=== PATIENT | female | born 1985 | race American Indian/Alaskan Native ===

== ENCOUNTER 2017-12-26 15:11 | Emergency (ER) | payer SELFPAY ==
[2017-12-26 16:22] LABS: Mean Corpuscular HGB Conc 27 % (30-34); Platelet Count 438 K/mm3 (140-440)
--- NOTE | 2017-12-26 16:23 | Emergency Department Report ---
ED General Adult HPI - General Chief complaint: Altered Mental Status Stated complaint: SYNCOPAL EPISODE Time Seen by Provider: 12/26/17 16:13 Source: patient, EMS (ems notes not available at time of chart dictation), RN notes reviewed Mode of arrival: Stretcher Limitations: No Limitations - History of Present Illness Initial comments: This is a 32-year-old female. The patient is previously unknown to this provider. She does not have a local primary care doctor. The patient has a past medical history of anemia. She is not . Patient reports she has not delivered her given within the past 2 months. The patient is brought to the hospital by EMS for resolved altered mental status. Patient was donating blood. Possibly was donating blood as per her environmental engineering aide/family member she became unresponsive, lifted up both of her arms, and was sweating and diaphoretic. This was painless, and is now resolved. The patient denies headache, neck pain, chest pain, abdominal pain, shortness of breath and urinary symptoms. She also denies toxic drug consumption. She further reports that last week while donating plasma she had another episode of convulsions. This was painless and nontraumatic. She has no symptoms at this time. All of her symptoms have resolved. Her convulsions/altered mental status did not have exacerbating or relieving factors. -: Sudden Severity scale (0 -10): 0 Consistency: now resolved Improves with: none Worsens with: none Associated Symptoms: confusion (as per family), seizure, syncope (as per family) . denies: chest pain, cough, diaphoresis, fever/chills, headaches, loss of appetite, malaise, nausea/vomiting, rash, shortness of breath, weakness, other - Related Data Allergies Allergy/AdvReac Type Severity Reaction Status Date / Time No Known Allergies Allergy Unverified 12/26/17 15:55 ED Review of Systems ROS: Stated complaint: SYNCOPAL EPISODE Other details as noted in HPI Comment: All other systems reviewed and negative ED Past Medical Hx - Past Medical History Previous Medical History?: No - Social History Smoking Status: Current Every Day Smoker ED Physical Exam - General Limitations: No Limitations General appearance: alert, in no apparent distress - Head Head exam: Present: atraumatic, normocephalic - Eye Eye exam: Present: normal appearance, PERRL, EOMI, other (visual acuity intact to finger counting, color perception, reading at a close distance). Absent: nystagmus - ENT ENT exam: Present: normal exam, normal orophraynx, mucous membranes moist, normal external ear exam - Neck Neck exam: Present: normal inspection, full ROM - Respiratory Respiratory exam: Present: normal lung sounds bilaterally. Absent: respiratory distress - Cardiovascular Cardiovascular Exam: Present: regular rate, normal rhythm, normal heart sounds. Absent: bradycardia, tachycardia, irregular rhythm, systolic murmur, diastolic murmur, rubs, gallop - GI/Abdominal GI/Abdominal exam: Present: soft, normal bowel sounds. Absent: distended, tenderness, guarding, rebound, rigid, pulsatile mass - Extremities Exam Extremities exam: Present: normal inspection, full ROM, normal capillary refill. Absent: tenderness, pedal edema, joint swelling, calf tenderness - Back Exam Back exam: Present: normal inspection, full ROM. Absent: tenderness, CVA tenderness (R), paraspinal tenderness, vertebral tenderness - Neurological Exam Neurological exam: Present: alert, oriented X3, CN II-XII intact, normal gait, other (Extraocular movements intact. Tongue midline. No facial droop. Facial sensation intact to light touch in the V1, V2, V3 distribution bilaterally. 5 and 5 strength in 4 extremities.. Sensation is intact to light touch in 4 extremities.). Absent: motor sensory deficit - Psychiatric Psychiatric exam: Present: normal affect, normal mood - Skin Skin exam: Present: warm, dry, intact, normal color. Absent: rash ED Course Vital Signs 12/26/17 15:56 Temperature 98 F Pulse Rate 82 Respiratory 16 Rate Blood Pressure 107/68 [Left] O2 Sat by Pulse 96 Oximetry - Reevaluation(s) Reevaluation #1: 12/26/17 17:55 Differential diagnosis, including not limited to: Vagal event, orthostasis, electrolyte derangement, intracranial lesion, primary seizure disorder, conversion disorder Assessment and plan: 32-year-old female who is clinically sober at this time, has a GCS of 15, with an NIH score of 0, has no pulmonary embolus or DVT risk factors, low risk by well's criteria, PERC negative, with 2 episodes of convulsions/loss of consciousness while donating blood. The first episode was last week, the second episode was today. Her neurologic examination is unremarkable and non-lateralizing. She is protecting her airway at this time. Plan is to check basic laboratory studies, obtain noncontrast CT scan of the brain, EKG, and reassess. Reevaluation #2: 12/26/17 18:18 CT scan demonstrates intracranial mass lesion with vasogenic edema. GCS is unchanged. Neurologic examination is unchanged. Case is discussed with neurosurgery and neuro critical care, Dr. Moncada, and Dr. Stephens, respectively. They recommended 1 g of Keppra and are agreeable to 10 mg of Decadron. Patient accepted to [facility]. This hospital does not have neurosurgery or neuro critical care available for consultation, and with an intracranial mass lesion causing vasogenic edema and convulsions/seizures, the patient needs emergent consultation, treatment and evaluation at this facility cannot definitively provide. Patient and family informed of CAT scan findings and need for transfer. ED Medical Decision Making - Lab Data Result diagrams: 12/26/17 16:01 12/26/17 16:01 Vital Signs 12/26/17 15:56 Temperature 98 F Pulse Rate 82 Respiratory 16 Rate Blood Pressure 107/68 [Left] O2 Sat by Pulse 96 Oximetry Lab Results 12/26/17 12/26/17 12/26/17 Range/Units 16:01 16:01 16:31 WBC 14.0 H (4.5-11.0) K/mm3 RBC 4.90 (3.65-5.03) M/mm3 Hgb 8.1 L (10.1-14.3) gm/dl Hct 30.1 L (30.3-42.9) % MCV 62 L (79-97) fl MCH 17 L (28-32) pg MCHC 27 L (30-34) % RDW 21.5 H (13.2-15.2) % Plt Count 438 (140-440) K/mm3 Sodium 139 (137-145) mmol/L Potassium 3.6 (3.6-5.0) mmol/L Chloride 102.3 (98-107) mmol/L Carbon Dioxide 20 L (22-30) mmol/L Anion Gap 20 mmol/L BUN 12 (7-17) mg/dL Creatinine 0.6 L (0.7-1.2) mg/dL Estimated GFR > 60 ml/min BUN/Creatinine Ratio 20 % Glucose 234 H (65-100) mg/dL Calcium 9.2 (8.4-10.2) mg/dL Magnesium 1.80 (1.7-2.3) mg/dL Total Creatine Kinase 42 (30-135) units/L TSH (0.270-4.200) mlU/mL HCG, Quant (0-4) mIU/mL 12/26/17 12/26/17 Range/Units 16:31 16:31 WBC (4.5-11.0) K/mm3 RBC (3.65-5.03) M/mm3 Hgb (10.1-14.3) gm/dl Hct (30.3-42.9) % MCV (79-97) fl MCH (28-32) pg MCHC (30-34) % RDW (13.2-15.2) % Plt Count (140-440) K/mm3 Sodium (137-145) mmol/L Potassium (3.6-5.0) mmol/L Chloride (98-107) mmol/L Carbon Dioxide (22-30) mmol/L Anion Gap mmol/L BUN (7-17) mg/dL Creatinine (0.7-1.2) mg/dL Estimated GFR ml/min BUN/Creatinine Ratio % Glucose (65-100) mg/dL Calcium (8.4-10.2) mg/dL Magnesium (1.7-2.3) mg/dL Total Creatine Kinase (30-135) units/L TSH 1.670 (0.270-4.200) mlU/mL HCG, Quant < 2 (0-4) mIU/mL - EKG Data -: EKG Interpreted by Sd EKG shows normal: sinus rhythm, axis (left axis deviation), intervals, QRS complexes Rate: normal - EKG Data When compared to previous EKG there are: previous EKG unavailable 12/26/17 17:54 Sinus, 85 bpm, borderline left axis, poor R-wave progression, abnormal EKG, not having chest pain, not consistent with a STEMI Critical care attestation.: If time is entered above; I have spent that time in minutes in the direct care of this critically ill patient, excluding procedure time. ED Disposition Clinical Impression: Vasogenic brain edema, Intracranial space-occupying lesion Disposition: [id number]-TRM GEN HOSP IP Is pt being admited?: No Does the pt Need Aspirin: No Condition: Good Referrals: PRIMARY CARE, [Primary Care Provider] - 3-5 Days
[2017-12-26 16:24] LABS: Hematocrit 30.1 % (30.3-42.9); Hemoglobin 8.1 gm/dl (10.1-14.3); Mean Corpuscular Hemoglobin 17 pg (28-32); Mean Corpuscular Volume 62 fl (79-97); Red Cell Distribution Width 21.5 % (13.2-15.2)
[2017-12-26 16:36] LABS: BUN/Creatinine Ratio 20; Blood Urea Nitrogen 12 mg/dL (7-17); Calcium 9.2 mg/dL (8.4-10.2); Hemolysis Index 8
--- NOTE | 2017-12-26 18:08 | Cat Scan Report ---
FINAL REPORT EXAM: CT HEAD/BRAIN WO CON HISTORY: sz vs convulsion TECHNIQUE: Noncontrast CT axial images of the brain. PRIORS: None. FINDINGS: Large and round, hyperdense mass noted along midline anterior falx, extending into both right and left frontal lobes and measuring approximately 5.5 x 5.1 cm in maximal cross-sectional diameter. Extensive low-density, probable vasogenic edema in the surrounding bifrontal regions, right greater than left, with effacement of overlying cortical sulci, posteroinferior displacement and partial effacement of right lateral ventricle frontal horn and suprasellar cistern. No parenchymal hemorrhage, midline shift or hydrocephalus. No evidence of acute cortical infarct. No abnormal, extra-axial fluid or air collection. Osseous calvarium grossly intact. Diffuse mucosal thickening and opacification of the frontal, ethmoid and right sphenoid sinuses. IMPRESSION: 1. Large, hyperdense mass in midline frontal region, with associated vasogenic edema and mass effect, suggesting meningioma. Differential diagnosis also includes butterfly glioma or lymphoma. Clinical correlation and followup suggested. 2. Paranasal sinus disease. Dr. Marte discussed results with Dr. Benedict on 26 Dec 2017 at approximately 1753 hours EST.
[2017-12-26] MEDS ORDERED: KEPPRA 1,000 MG/NS 0.75% 100ML 1,000 MG/100 ML BAG IV STA (18:17)
[2017-12-26] MEDS ORDERED: DECADRON IV ONE (18:17)
[2017-12-26] MEDS ORDERED: KEPPRA 1,000 MG/NS 0.75% 100ML 1,000 MG/100 ML BAG IV ONE (18:23)
[2017-12-27 00:51] VITALS: BP 143/86
== END 2017-12-27 02:50 | disposition short-term general hospital (02) ==
LOC: ED 15:11
DX: G93.6 Cerebral edema (principal); R90.0 Intracranial space-occupying lesion found on diagnostic imaging of central nervous system
CPT/HCPCS: 36415; 70450; 80048; 82550; 83735; 84443; 84702; 85027; 93005; 93010; 96365; 96375; 99285; J1100; J1953